=== PATIENT | female | born 1970 | race Caucasian/White ===

== ENCOUNTER 2017-12-03 15:19 | Emergency (ER) | payer OTHER ==
[~2017-12-03] VITALS: Ht 154.9 cm; Wt 54.4 kg
[~2017-12-03 15:19] MED LIST: ACEBUTCAFT PO; AMOX500; BELPTAB PO; CEPH500 PO; CHOL10002; CIPR500 PO; CYCL10 PO; FISH1000 PO; GUAI600T33 PO; HYDACE5 PO; HYDACE5325 PO; IBUP200; LOPE2C PO; MELO7.5 PO; METO25ER PO; NAPR500 PO; OMEP20ER PO; OMEP40CA12 PO; OXYACE5T PO; OXYC5; OXYC5 PO; PROM25 PO; Prilosec Otc20 MG PO; RANI150; RXCYCL10 PO; RXHYDACE PO; RXTRAM50 PO; SULTRIDS PO; TRAM50 PO; TRAZ100; VENL75
[2017-12-03 15:53] LABS: Source, Urine Clean Catch
[2017-12-03 16:07] LABS: Appearance, Urine Clear (Clear); Bilirubin, Urine Neg (Neg); Blood, Urine 1+ (Neg); Color, Urine Yellow (P-Yellow); Glucose Qualitative, Urine Neg (Neg); Ketones, Urine 1+ (Neg); Leukocyte Esterase, Urine 1+ (Neg); Nitrite, Urine Neg (Neg); Protein, Urine Neg (Neg); Urobilinogen, Urine 1+ (Normal)
[2017-12-03 16:10] LABS: BASOPHILS ABSOLUTE AUTO 0.08 K/mm3 (0.00-0.23); BASOPHILS PERCENT AUTO 1 % (0-2); EOSINOPHILS ABSOLUTE AUTO 0.07 K/mm3 (0.00-0.68); EOSINOPHILS PERCENT AUTO 1 % (0-6); Hematocrit 43.4 % (33.0-51.0); Hemoglobin 14.4 g/dL (11.5-16.0); IMMATURE GRAN ABSOLUTE AUTO 0.05 K/mm3 (0.00-0.10); IMMATURE GRAN PERCENT AUTO 1 % (0-1); LYMPHOCYTES ABSOLUTE AUTO 3.67 K/mm3 (0.84-5.20); LYMPHOCYTES PERCENT AUTO 37 % (21-46); MONOCYTES ABSOLUTE AUTO 0.53 K/mm3 (0.16-1.47); MONOCYTES PERCENT AUTO 5 % (4-13); Mean Corpuscular HGB 31.4 pg (26.0-34.0); Mean Corpuscular HGB Conc 33.2 g/dL (31.5-36.5); Mean Corpuscular Volume 95 fL (80-100); Mean Platelet Volume 10.5 fL (9.1-12.4); NEUTROPHILS ABSOLUTE AUTO 5.55 K/mm3 (1.96-9.15); NEUTROPHILS PERCENT AUTO 56 % (41-73); Platelet Count 310 K/mm3 (150-400); RDW Standard Deviation 45.1 fL (35.1-46.3); Red Blood Cell Count 4.58 M/mm3 (3.80-5.20); White Blood Cell Count 9.95 K/mm3 (4.00-11.30)
[2017-12-03 16:30] LABS: Alanine Aminotransfer (ALT/SGP 24 U/L (12-78); Albumin, Blood 3.5 g/dL (3.4-5.0); Albumin/Globulin Ratio 0.9 (0.8-1.8); Alk Phos 73 U/L (50-136); Anion Gap 7 mmol/L (6-16); Aspartate Aminotrans (AST/SGOT 27 U/L (12-37); Bilirubin, Total 0.1 mg/dL (0.1-1.0); Blood Urea Nitrogen 8 mg/dL (8-24); Bun/Creatinine Ratio 13.8 (12.0-20.0); CO2, Blood 27 mmol/L (21-32); Calcium, Blood 8.4 mg/dL (8.5-10.1); Chloride, Blood 105 mmol/L (98-108); Creatinine, Blood 0.58 mg/dL (0.40-1.00); Glomerular Filtration Rate >60 (60-); Glucose, Blood 94 mg/dL (70-99); Potassium, Blood 3.4 mmol/L (3.5-5.5); Sodium, Blood 139 mmol/L (136-145); Total Protein, Blood 7.5 g/dL (6.4-8.2); Troponin I <0.015 ng/mL (0.000-0.040)
[2017-12-03 16:35] LABS: Bacteria Few /hpf; Squamous Epithelial Cells Mod /hpf (Few)
[2017-12-03] MEDS ORDERED: KETO10 PO (16:58)
[2018-08-28] MEDS ORDERED: OMEPRAZOLE MAGN20 MG PO (10:02)
[2018-08-28] MEDS ORDERED: Metoprolol Succ25 MG PO (10:03)
[2018-08-28] MEDS ORDERED: ABAT250V (10:03)
[2018-08-28] MEDS ORDERED: OXYC5 PO (10:04)
[2018-08-28] MEDS ORDERED: PROZAC20 MG PO (10:05)
[2018-08-28] MEDS ORDERED: VIBERZI100 MG PO (10:05)
[2018-08-28] MEDS ORDERED: PROBIOTIC-10 11 EACH PO (10:05)
[2018-09-06] MEDS ORDERED: MEDR10 PO (14:27)
== END 2017-12-03 17:50 | disposition home or self-care (01) ==
LOC: ER 15:19
PROVIDERS: Emergency Medicine; Physician Assistant
DX: M94.0 Chondrocostal junction syndrome [Tietze] (principal); F17.210 Nicotine dependence, cigarettes, uncomplicated; Z88.5 Allergy status to narcotic agent; Z79.899 Other long term (current) drug therapy; Z86.19 Personal history of other infectious and parasitic diseases
CPT/HCPCS: 36415; 71046; 80053; 81001; 83880; 84484; 85025; 87086; 93005; 93010; 96374; 99283; J1885

== ENCOUNTER → 2018-07-02 | Outpatient (CLI) | payer OTHER ==
[~2018-07-02] MED LIST changes: +KETO10 PO
[2018-07-02 15:32] LABS: Adenovirus F 40/41 Not Detected (NOT DETECT); Astrovirus Not Detected (NOT DETECT); Campylobacter Sp Not Detected (NOT DETECT); Cryptosporidium Not Detected (NOT DETECT); Cyclospora Cayetanensis Not Detected (NOT DETECT); E. Coli O157 Not Detected (NOT DETECT); Entamoeba Histolytica Not Detected (NOT DETECT); Enteropathogenic E. coli-EPEC Not Detected (NOT DETECT); Enterotoxigenic E. coli-ETEC Not Detected (NOT DETECT); Giardia Lamblia Not Detected (NOT DETECT); Norovirus GI/GII Not Detected (NOT DETECT); Plesiomonas Shigelloides Not Detected (NOT DETECT); Rotavirus A Not Detected (NOT DETECT); Salmonella Sp Not Detected (NOT DETECT); Sapovirus Not Detected (NOT DETECT); Shiga Toxin-prod E. coli-STEC Not Detected (NOT DETECT); Shigella/Enteroin E. coli-EIEC Not Detected (NOT DETECT); Vibrio Cholerae Not Detected (NOT DETECT); Vibrio Sp Not Detected (NOT DETECT); Yersinia Enterocolitica Not Detected (NOT DETECT)
[2018-07-02 22:06] LABS: Enteroaggregative E. coli-EAEC Detected (NOT DETECT)
== END | disposition home or self-care (01) ==
LOC: LAB EV 10:12 → LAB SHORT 10:12
PROVIDERS: Internal Medicine
DX: K52.9 Noninfective gastroenteritis and colitis, unspecified (principal)
CPT/HCPCS: 87507

== ENCOUNTER 2018-11-13 07:07 | Day surgery (SDC) | payer OTHER ==
[~2018-11-13] VITALS: Ht 154.9 cm; Wt 130.0 kg
[~2018-11-13 07:07] MED LIST changes: +ABAT250V; +MEDR10 PO; +Metoprolol Succ25 MG PO; +OMEPRAZOLE MAGN20 MG PO; +PROBIOTIC-10 11 EACH PO; +PROZAC20 MG PO; +VIBERZI100 MG PO
--- NOTE | 2018-11-13 08:10 | NUR ---
Ambulatory in Day Surgery History, Chart, Medications and Allergies reviewed before start of procedure. Lungs clear T/O to Auscultation. Patient confirms NPO status and agrees with scheduled surgery. Pre-Op teaching done. Pt verbalizes understanding.
--- NOTE | 2018-11-13 12:18 | NUR ---
PT ARRIVED TO UNIT AT APROX 1130 VIA BED FROM PACU POD 0 LAP VAG HYSTER. STERI STRIPS X'S 3, UMBILICUS WITH MOD AMT DRAINAGE-GAUZE PLACED, OTHERS C/D/I. PT DENIES PAIN. THAKKAR PATENT, DRAINING NURIS CLEAR URINE. DENIES N/V, TOLERATING SMALL AMOUNTS OF PO AT THIS TIME. POST-OP VSS.
--- NOTE | 2018-11-13 18:06 | NUR ---
SHIFT SUMMARY PT POD 0 LAVH. STERI STRIPS X'S 3 INTACT. THAKKAR PATENT, DRAINING CLEAR NURIS URINE. PAIN MANAGED WITH 2 PERCOCET Q4, MEDICATED TWICE THIS SHIFT. SIMETHICONE GIVEN FOR GAS PAIN. PUT UP IN ROOM AMBULATING SMALL DISTANCES. OUT TO SMOKE X'S 2 IN WHEELCHAIR. TOLERATING PO WITH NO N/V. PLAN IS TO DC HOME TOMORROW IF NO COMPLICATIONS.
--- NOTE | 2018-11-14 04:53 | NUR ---
SUMMARY: PT IS POD1 LAVH. DID WELL TONIGHT, VSS, A/O. MEDICATED WITH 2 OXYCODONE Q4-Q6. SURGICAL SITES WNL, TOLERATING REG DIET. PT REPORTS PASSING GAS, BIJAN TO DC THIS AM. PT UP IN ROOM INDEPENDENTLY. NO SAFETY CONCERNS AT THIS TIME.
[2018-11-14 05:43] LABS: BASOPHILS ABSOLUTE AUTO 0.04 K/mm3 (0.00-0.23); BASOPHILS PERCENT AUTO 0 % (0-2); EOSINOPHILS ABSOLUTE AUTO 0.02 K/mm3 (0.00-0.68); EOSINOPHILS PERCENT AUTO 0 % (0-6); Hematocrit 35.7 % (33.0-51.0); Hemoglobin 11.8 g/dL (11.5-16.0); IMMATURE GRAN PERCENT AUTO 1 % (0-1); LYMPHOCYTES PERCENT AUTO 18 % (21-46); MONOCYTES ABSOLUTE AUTO 0.87 K/mm3 (0.16-1.47); MONOCYTES PERCENT AUTO 5 % (4-13); Mean Corpuscular HGB 32.3 pg (26.0-34.0); Mean Corpuscular HGB Conc 33.1 g/dL (31.5-36.5); Mean Corpuscular Volume 98 fL (80-100); Mean Platelet Volume 10.4 fL (9.1-12.4); NEUTROPHILS ABSOLUTE AUTO 12.74 K/mm3 (1.96-9.15); NEUTROPHILS PERCENT AUTO 76 % (41-73); Platelet Count 255 K/mm3 (150-400); RDW Coefficient Variation 13.8 % (11.7-14.2); RDW Standard Deviation 50.5 fL (35.1-46.3); Red Blood Cell Count 3.65 M/mm3 (3.80-5.20); White Blood Cell Count 16.87 K/mm3 (4.00-11.30)
--- NOTE | 2018-11-14 07:08 | NUR ---
11/14/18 0708 Amanda Giordano VERIFICATIONS: EDIT CHART.
[2018-11-14] MEDS ORDERED: IBUP800 PO (08:21)
[2018-11-14] MEDS ORDERED: Percocet 10-321 EACH PO (08:21)
[2018-11-14] MEDS ORDERED: Milk Of Ma400 MG/5 M PO (08:22)
--- NOTE | 2018-11-14 16:05 | NUR ---
DISCHARGE PT DISCHARGED HOME FROM UNIT AT APROX 1630. PT GIVEN WRITTEN AND VERBAL DISCHARGE INSTRUCTIONS AND VERBALIZED UNDERSTANDING OF THESE INSTRUCTION. PT GIVEN GREGN RX, COPY IN CHART.
== END 2018-11-14 15:40 | disposition home or self-care (01) ==
LOC: ORSCMMR 07:07 → ORD 09:20 → ORSCMMR 09:45 → ORD 10:15 → SURS 11:38 → ORSCMMR 11-14 15:40
PROVIDERS: Obstetrics & Gynecology
DX: N92.0 Excessive and frequent menstruation with regular cycle (principal); I10 Essential (primary) hypertension; F17.210 Nicotine dependence, cigarettes, uncomplicated; Z79.899 Other long term (current) drug therapy
CPT/HCPCS: 36415; 85025; 86850; 86900; 86901; 88307; J0690; J1100; J1885; J2250; J2370; J2405; J2710; J3010; J7120; Q0163

== ENCOUNTER 2019-07-18 19:32 | Emergency (ER) | payer OTHER ==
[~2019-07-18] VITALS: Ht 152.4 cm; Wt 56.7 kg
[~2019-07-18 19:32] MED LIST changes: +IBUP800 PO; +Milk Of Ma400 MG/5 M PO; +Percocet 10-321 EACH PO
[2019-07-18 20:17] LABS: BASOPHILS ABSOLUTE AUTO 0.09 K/mm3 (0.00-0.23); BASOPHILS PERCENT AUTO 1 % (0-2); EOSINOPHILS ABSOLUTE AUTO 0.13 K/mm3 (0.00-0.68); EOSINOPHILS PERCENT AUTO 1 % (0-6); Hematocrit 42.1 % (33.0-51.0); Hemoglobin 13.6 g/dL (11.5-16.0); IMMATURE GRAN ABSOLUTE AUTO 0.07 K/mm3 (0.00-0.10); IMMATURE GRAN PERCENT AUTO 1 % (0-1); LYMPHOCYTES ABSOLUTE AUTO 4.36 K/mm3 (0.84-5.20); LYMPHOCYTES PERCENT AUTO 44 % (21-46); MONOCYTES ABSOLUTE AUTO 0.58 K/mm3 (0.16-1.47); MONOCYTES PERCENT AUTO 6 % (4-13); Mean Corpuscular HGB 32.1 pg (26.0-34.0); Mean Corpuscular HGB Conc 32.3 g/dL (31.5-36.5); Mean Corpuscular Volume 99 fL (80-100); Mean Platelet Volume 10.7 fL (9.1-12.4); NEUTROPHILS ABSOLUTE AUTO 4.62 K/mm3 (1.96-9.15); NEUTROPHILS PERCENT AUTO 47 % (41-73); Platelet Count 371 K/mm3 (150-400); RDW Coefficient Variation 14.3 % (11.7-14.2); RDW Standard Deviation 51.8 fL (35.1-46.3); Red Blood Cell Count 4.24 M/mm3 (3.80-5.20); White Blood Cell Count 9.85 K/mm3 (4.00-11.30)
[2019-07-18 20:37] LABS: Alanine Aminotransfer (ALT/SGP 20 U/L (12-78); Albumin, Blood 3.3 g/dL (3.4-5.0); Albumin/Globulin Ratio 0.9 (0.8-1.8); Alk Phos 68 U/L (50-136); Anion Gap 3 mmol/L (6-16); Aspartate Aminotrans (AST/SGOT 20 U/L (12-37); Bilirubin, Total 0.7 mg/dL (0.1-1.0); Blood Urea Nitrogen 11 mg/dL (8-24); CO2, Blood 27 mmol/L (21-32); Calcium, Blood 9.2 mg/dL (8.5-10.1); Chloride, Blood 109 mmol/L (98-108); Creatinine, Blood 0.53 mg/dL (0.40-1.00); Globulin, Blood 3.7 g/dL (2.2-4.0); Glomerular Filtration Rate >60 (60-); Glucose, Blood 94 mg/dL (70-99); Potassium, Blood 3.5 mmol/L (3.5-5.5); Sodium, Blood 139 mmol/L (136-145)
[2019-07-18] MEDS ORDERED: VOLTAREN100 GM TOP (21:27)
== END 2019-07-18 21:34 | disposition home or self-care (01) ==
LOC: ER 19:32
PROVIDERS: Physician Assistant
DX: H92.01 Otalgia, right ear (principal); Z88.5 Allergy status to narcotic agent; Z79.899 Other long term (current) drug therapy; K21.9 Gastro-esophageal reflux disease without esophagitis; F32.9 Major depressive disorder, single episode, unspecified; E78.5 Hyperlipidemia, unspecified; Z87.891 Personal history of nicotine dependence
CPT/HCPCS: 36415; 70491; 80053; 85025; 96361; 96374-59; 96375-59; 99284-25; J1100; J1885; J7120; Q9967

== ENCOUNTER 2019-08-11 17:40 | Emergency (ER) | payer OTHER ==
[~2019-08-11] VITALS: Ht 152.4 cm; Wt 59.4 kg
[~2019-08-11 17:40] MED LIST changes: +VOLTAREN100 GM TOP
[2019-08-11] MEDS ORDERED: BUSP5 PO (18:15)
[2019-08-12] MEDS ORDERED: BUSP5 PO (19:48)
[2019-08-12] MEDS ORDERED: CEPH500 PO (21:21)
[2019-08-12] MEDS ORDERED: Bactrim Ds Tab1 EACH PO (21:21)
== END 2019-08-11 19:21 | disposition home or self-care (01) ==
LOC: ER 17:40
DX: L72.9 Follicular cyst of the skin and subcutaneous tissue, unspecified (principal); K21.9 Gastro-esophageal reflux disease without esophagitis; F32.9 Major depressive disorder, single episode, unspecified; Z87.891 Personal history of nicotine dependence; Z88.5 Allergy status to narcotic agent; Z79.899 Other long term (current) drug therapy
CPT/HCPCS: 10061; 99283-25

== ENCOUNTER 2019-09-29 20:29 | Emergency (ER) | payer OTHER ==
[~2019-09-29] VITALS: Ht 152.4 cm; Wt 56.2 kg
[~2019-09-29 20:29] MED LIST changes: +BUSP5 PO; +Bactrim Ds Tab1 EACH PO
[2019-09-29] MEDS ORDERED: Keflex500 MG PO (23:04)
[2019-09-29] MEDS ORDERED: Bactrim Ds Tab1 EACH PO (23:04)
== END 2019-09-29 23:13 | disposition home or self-care (01) ==
LOC: ER 20:29
DX: L02.212 Cutaneous abscess of back [any part, except buttock and flank] (principal); K21.9 Gastro-esophageal reflux disease without esophagitis; F32.9 Major depressive disorder, single episode, unspecified; F17.210 Nicotine dependence, cigarettes, uncomplicated; Z86.19 Personal history of other infectious and parasitic diseases; E78.5 Hyperlipidemia, unspecified; Z88.5 Allergy status to narcotic agent; Z79.899 Other long term (current) drug therapy
CPT/HCPCS: 10060; 99283-25; A9270-GY

== ENCOUNTER 2021-02-26 11:07 | Emergency (ER) | payer OTHER ==
[~2021-02-26] VITALS: Ht 154.9 cm; Wt 63.5 kg
[~2021-02-26 11:07] MED LIST changes: +Keflex500 MG PO
== END 2021-02-26 11:56 | disposition home or self-care (01) ==
LOC: ER 11:07
DX: M25.571 Pain in right ankle and joints of right foot (principal); K21.9 Gastro-esophageal reflux disease without esophagitis; I10 Essential (primary) hypertension; F17.210 Nicotine dependence, cigarettes, uncomplicated; Z88.5 Allergy status to narcotic agent; Z79.899 Other long term (current) drug therapy
CPT/HCPCS: 99283

== ENCOUNTER 2021-04-28 15:39 | Emergency (ER) | payer OTHER ==
[~2021-04-28] VITALS: Ht 152.4 cm; Wt 64.4 kg
[2021-04-28 16:23] LABS: Hematocrit 44.3 % (33.0-51.0); Hemoglobin 14.4 g/dL (11.5-16.0); Mean Corpuscular HGB 30.5 pg (26.0-34.0); Mean Corpuscular HGB Conc 32.5 g/dL (31.5-36.5); Mean Corpuscular Volume 94 fL (80-100); Mean Platelet Volume 10.2 fL (9.1-12.4); Platelet Count 363 K/mm3 (150-400); RDW Coefficient Variation 14.4 % (11.7-14.2); Red Blood Cell Count 4.72 M/mm3 (3.80-5.20); White Blood Cell Count 8.32 K/mm3 (4.00-11.30)
[2021-04-28 16:43] LABS: Alanine Aminotransfer (ALT/SGP 22 U/L (12-78); Albumin, Blood 3.4 g/dL (3.4-5.0); Albumin/Globulin Ratio 0.9 (0.8-1.8); Alk Phos 119 U/L (50-136); Anion Gap 4 mmol/L (6-16); Aspartate Aminotrans (AST/SGOT 19 U/L (12-37); Bilirubin, Total 0.2 mg/dL (0.1-1.0); Blood Urea Nitrogen 5 mg/dL (8-24); Bun/Creatinine Ratio 8.4 (12.0-20.0); CO2, Blood 25 mmol/L (21-32); Calcium, Blood 8.9 mg/dL (8.5-10.1); Chloride, Blood 108 mmol/L (98-108); Creatinine, Blood 0.59 mg/dL (0.40-1.00); Globulin, Blood 3.9 g/dL (2.2-4.0); Glomerular Filtration Rate >60 (60-); Glucose, Blood 94 mg/dL (70-99); Potassium, Blood 3.9 mmol/L (3.5-5.5); Sodium, Blood 137 mmol/L (136-145); Total Protein, Blood 7.3 g/dL (6.4-8.2); Troponin I <0.015 ng/mL (0.000-0.040)
[2021-04-28 17:34] LABS: BASOPHILS PERCENT MAN 0 % (0-2); EOSINOPHILS ABSOLUTE MAN 0.16 K/mm3 (0.00-0.68); EOSINOPHILS PERCENT MAN 2 % (0-6); LYMPHOCYTES ABSOLUTE MAN 5.15 K/mm3 (0.84-5.20); LYMPHOCYTES PERCENT MAN 62 % (21-46); MONOCYTES ABSOLUTE MAN 0.33 K/mm3 (0.16-1.47); MONOCYTES PERCENT MAN 4 % (4-13); NEUTROPHILS ABSOLUTE MAN 2.66 K/mm3 (1.96-9.15); SEG NEUTROPHILS PERCENT MAN 32 % (41-73); TOTAL CELLS COUNTED 100
[2021-04-28] MEDS ORDERED: METO25ER PO (19:40)
[2021-04-28] MEDS ORDERED: Amitriptyline H10 MG PO (19:40)
[2021-04-28] MEDS ORDERED: LOSA25 PO (19:40)
[2021-04-28] MEDS ORDERED: THERA-D2000 UNIT PO (19:41)
== END 2021-04-28 23:00 | disposition home or self-care (01) ==
LOC: ER 15:39
PROVIDERS: Physician Assistant
DX: R07.89 Other chest pain (principal); K21.9 Gastro-esophageal reflux disease without esophagitis; E78.5 Hyperlipidemia, unspecified; I10 Essential (primary) hypertension; Z88.5 Allergy status to narcotic agent; Z87.891 Personal history of nicotine dependence; Z79.899 Other long term (current) drug therapy
CPT/HCPCS: 36415; 71046; 71260; 80053; 84484; 85025; 85379; 93005; 93010; 99284-25; Q9967

== ENCOUNTER 2021-11-17 05:58 | Day surgery (SDC) | payer OTHER ==
[~2021-11-17] VITALS: Ht 152.4 cm; Wt 70.8 kg
[~2021-11-17 05:58] MED LIST changes: +Amitriptyline H10 MG PO; +GABA300T24 PO; +LOSA25 PO; +ONDA4 PO; +ROSUVASTATIN CAL5 MG PO; +THERA-D2000 UNIT PO
[2021-11-17] MEDS ORDERED: BENZ100A PO (06:25)
[2021-11-17] MEDS ORDERED: FLUT1DIS2 INH (06:32)
--- NOTE | 2021-11-17 06:58 | NUR ---
History, Chart, Medications and Allergies reviewed before start of procedure. Patient confirms NPO status and agrees with scheduled surgery. Lungs clear T/O to Auscultation. Patient States Post-Procedure ride home has been arranged with her significant other.
--- NOTE | 2021-11-17 10:23 | NUR ---
REPORT TO SOTO ACKERMAN
--- NOTE | 2021-11-17 10:59 | NUR ---
Patient up to Ambulate independently. Gait steady. Discharge instructions reviewed with patient. Patient verbalizes understanding. Copy given to patient to take home. Dressing ON FORHEAD, CHIN, AND FIVE ON NECK to procedure site clean, dry, intact with no visible drainage, swelling, erythema or bruising noted. Patient States Post-Procedure ride home has been arranged. Discharged via wheelchair to private car for ride home. ALL BELONGINGS RETURNED TO PATIENT.
== END 2021-11-17 22:40 | disposition home or self-care (01) ==
LOC: ORSCMMR 05:58 → ORD 07:30 → ORSCMMR 07:30
PROVIDERS: Surgery
PROC: 0HB1XZX Excision of Face Skin, External Approach, Diagnostic (ICD-10-PCS; principal; 2021-11-17 07:30)
PROC: 0HB4XZX Excision of Neck Skin, External Approach, Diagnostic (ICD-10-PCS; principal; 2021-11-17 07:30)
DX: L72.9 Follicular cyst of the skin and subcutaneous tissue, unspecified (principal); L72.0 Epidermal cyst; I10 Essential (primary) hypertension; J44.9 Chronic obstructive pulmonary disease, unspecified; F17.210 Nicotine dependence, cigarettes, uncomplicated; K21.9 Gastro-esophageal reflux disease without esophagitis; Z79.899 Other long term (current) drug therapy
CPT/HCPCS: 88304; A9270; J0690; J2250; J2370; J2704; J3010; J7120

== ENCOUNTER 2022-05-10 13:09 | Day surgery (SDC) | payer OTHER ==
[~2022-05-10] VITALS: Ht 152.4 cm; Wt 67.7 kg
[~2022-05-10 13:09] MED LIST changes: +BENZ100A PO; +FLUT1DIS2 INH
== END 2022-05-10 15:16 | disposition home or self-care (01) ==
LOC: ORSCSDS 13:09
PROVIDERS: Student in an Organized Health Care Education/Training Program
PROC: 0DB58ZX Excision of Esophagus, Via Natural or Artificial Opening Endoscopic, Diagnostic (ICD-10-PCS; principal; 2022-05-10 14:30)
DX: R13.10 Dysphagia, unspecified (principal); B37.81 Candidal esophagitis; K21.9 Gastro-esophageal reflux disease without esophagitis; I10 Essential (primary) hypertension; F41.9 Anxiety disorder, unspecified; J44.9 Chronic obstructive pulmonary disease, unspecified; Z86.19 Personal history of other infectious and parasitic diseases; F17.210 Nicotine dependence, cigarettes, uncomplicated; Z79.899 Other long term (current) drug therapy
CPT/HCPCS: 88305; 88312; A9270; J2704; J7120

== ENCOUNTER → 2022-09-10 | Outpatient (CLI) | payer OTHER | END | disposition home or self-care (01) | LOC: LAB 13:48 → LAB SHORT 13:48 | DX: R19.7 Diarrhea, unspecified (principal) | CPT/HCPCS: 87338 ==

== ENCOUNTER 2024-03-17 21:25 | Inpatient (IN) | payer OTHER ==
[~2024-03-17] VITALS: Ht 152.4 cm; Wt 59.1 kg
[~2024-03-17 21:25] MED LIST changes: +MIRT15ST PO; +VITAMIN D310 MC5 PO
[2024-03-17 21:51] LABS: BASOPHILS PERCENT AUTO 1 % (0-2); EOSINOPHILS ABSOLUTE AUTO 0.04 K/mm3 (0.00-0.68); EOSINOPHILS PERCENT AUTO 0 % (0-6); Hematocrit 43.4 % (33.0-51.0); Hemoglobin 14.3 g/dL (11.5-16.0); IMMATURE GRAN ABSOLUTE AUTO 0.07 K/mm3 (0.00-0.10); IMMATURE GRAN PERCENT AUTO 1 % (0-1); LYMPHOCYTES ABSOLUTE AUTO 0.77 K/mm3 (0.84-5.20); LYMPHOCYTES PERCENT AUTO 7 % (21-46); MONOCYTES ABSOLUTE AUTO 1.23 K/mm3 (0.16-1.47); MONOCYTES PERCENT AUTO 11 % (4-13); Mean Corpuscular HGB 30.8 pg (26.0-34.0); Mean Corpuscular HGB Conc 32.9 g/dL (31.5-36.5); Mean Corpuscular Volume 93 fL (80-100); NEUTROPHILS ABSOLUTE AUTO 8.95 K/mm3 (1.96-9.15); NEUTROPHILS PERCENT AUTO 80 % (41-73); Platelet Count 346 K/mm3 (150-400); RDW Coefficient Variation 15.2 % (11.7-14.2); RDW Standard Deviation 52.4 fL (35.1-46.3); Red Blood Cell Count 4.65 M/mm3 (3.80-5.20); White Blood Cell Count 11.16 K/mm3 (4.00-11.30)
[2024-03-17 22:08] LABS: Albumin, Blood 3.7 g/dL (3.4-5.0); Albumin/Globulin Ratio 0.9 (0.8-1.8); Bilirubin, Total 0.3 mg/dL (0.1-1.0); Bun/Creatinine Ratio 7.4 (12.0-20.0); Calcium, Blood 9.4 mg/dL (8.5-10.1); Creatinine, Blood 0.68 mg/dL (0.40-1.00); Globulin, Blood 4.1 g/dL (2.2-4.0); Potassium, Blood 3.7 mmol/L (3.5-5.5); Total Protein, Blood 7.8 g/dL (6.4-8.2)
[2024-03-17 22:17] LABS: Influenza A, PCR NEGATIVE (NEGATIVE); Influenza B, PCR NEGATIVE (NEGATIVE); Resp Syncytial Virus, PCR NEGATIVE (NEGATIVE)
[2024-03-17] MEDS ORDERED: MethylPREDNISolone Sod Succ 125 MG Vial IV ONE (22:20)
[2024-03-17] MEDS ORDERED: Ketorolac Tromethamine 30mg Vial IV ONE (22:20)
[2024-03-17] MEDS ORDERED: Albuterol 2.5 MG/3 ML VIAL INH SCH (22:20)
[2024-03-17 22:46] LABS: SARS-Cov-2 (COVID-19) PCR, MMC POSITIVE (NEGATIVE)
[2024-03-17] MEDS ORDERED: AIRSUPRA 90-810.7 GM IH (23:28)
[2024-03-17] MEDS ORDERED: Acetaminophen 325 MG TABLET PO PRN (23:45)
[2024-03-17] MEDS ORDERED: Melatonin 3 MG Tab PO PRN (23:45)
[2024-03-17] MEDS ORDERED: Ondansetron 4 MG TAB PO PRN (23:45)
[2024-03-17] MEDS ORDERED: Guaifenesin/Dextromethorphan Syrup 5 ML UDC PO PRN (23:45)
[2024-03-18] MEDS ORDERED: Albuterol HFA200 ACT/6.7 GM INH INH PRN (00:05)
[2024-03-18] MEDS ORDERED: OxyCODONE 10/Acetamin 325 TABLET PO PRN (00:20)
[2024-03-18] MEDS ORDERED: Remdesivir (EUA) 200 MG in NS 250 ML IV ONE (00:25)
[2024-03-18] MEDS ORDERED: Mometasone/Formoterol MDI 100/5 mcg 13 GM INH SCH (00:30)
[2024-03-18] MEDS ORDERED: ALDACTONE100 MG PO (00:37)
[2024-03-18 00:43] VITALS: BP 154/98
[2024-03-18] MEDS ORDERED: Mirtazapine 15 MG SoluTab PO SCH (01:00)
[2024-03-18] MEDS ORDERED: NS 250 ML IV PRN ×2 (01:10→13:00)
[2024-03-18 03:03] VITALS: BP 154/85
[2024-03-18 04:16] LABS: BASOPHILS ABSOLUTE AUTO 0.06 K/mm3 (0.00-0.23); BASOPHILS PERCENT AUTO 1 % (0-2); EOSINOPHILS PERCENT AUTO 0 % (0-6); Hematocrit 44.2 % (33.0-51.0); Hemoglobin 14.5 g/dL (11.5-16.0); IMMATURE GRAN ABSOLUTE AUTO 0.06 K/mm3 (0.00-0.10); IMMATURE GRAN PERCENT AUTO 1 % (0-1); LYMPHOCYTES ABSOLUTE AUTO 0.36 K/mm3 (0.84-5.20); LYMPHOCYTES PERCENT AUTO 4 % (21-46); MONOCYTES ABSOLUTE AUTO 0.11 K/mm3 (0.16-1.47); MONOCYTES PERCENT AUTO 1 % (4-13); Mean Corpuscular HGB 30.7 pg (26.0-34.0); Mean Corpuscular HGB Conc 32.8 g/dL (31.5-36.5); Mean Corpuscular Volume 93 fL (80-100); Mean Platelet Volume 11.1 fL (9.1-12.4); NEUTROPHILS ABSOLUTE AUTO 7.59 K/mm3 (1.96-9.15); NEUTROPHILS PERCENT AUTO 93 % (41-73); Platelet Count 330 K/mm3 (150-400); RDW Coefficient Variation 15.2 % (11.7-14.2); RDW Standard Deviation 52.5 fL (35.1-46.3); Red Blood Cell Count 4.73 M/mm3 (3.80-5.20); White Blood Cell Count 8.18 K/mm3 (4.00-11.30)
[2024-03-18 04:39] LABS: Albumin, Blood 3.6 g/dL (3.4-5.0); Albumin/Globulin Ratio 0.9 (0.8-1.8); Bilirubin, Total 0.4 mg/dL (0.1-1.0); Bun/Creatinine Ratio 8.3 (12.0-20.0); Calcium, Blood 9.5 mg/dL (8.5-10.1); Creatinine, Blood 0.6 mg/dL (0.40-1.00); Potassium, Blood 3.5 mmol/L (3.5-5.5); Total Protein, Blood 7.6 g/dL (6.4-8.2)
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
[2024-03-18] MEDS ORDERED: Omeprazole 20 MG CapCR PO SCH (07:30)
[2024-03-18 08:28] VITALS: BP 150/86
[2024-03-18] MEDS ORDERED: Enoxaparin 40 MG/0.4 ML SYR SC SCH (09:00)
[2024-03-18] MEDS ORDERED: Lactobacil 2-S.Thermo-Bifido 1 1 Cap PO SCH (09:00)
[2024-03-18] MEDS ORDERED: PredniSONE 20 MG Tab PO SCH (09:00)
[2024-03-18] MEDS ORDERED: Dexamethasone Sod Phos 10 MG/ML 1ML VIAL IV SCH (09:00)
[2024-03-18] MEDS ORDERED: BusPIRone HCl 10 MG Tab PO SCH (09:00)
[2024-03-18] MEDS ORDERED: GuaiFENesin 600 MG TabCR PO SCH (09:00)
[2024-03-18] MEDS ORDERED: Metoprolol Succinate 25 MG TABCR PO SCH (09:00)
[2024-03-18] MEDS ORDERED: Losartan Potassium 25 MG Tab PO SCH (09:00)
--- NOTE | 2024-03-18 16:00 | NUR ---
SHIFT SUMMARY MS MC HAS C/O HEADACHE THAT SHE SAID STARTED AT 0230 YESTERDAY MORNING. ROOM DARKENED, GIVEN TYLENOL AND PERCOCET FOR HEADACHE WHICH BROUGHT IT DOWN TO 5/10. SHE IS WATCHING TV AND TALKING ON PHONE. GOOD APPETITE. UP INDEPENDENTLY TO THE BATHROOM. BED LOW, CALL LIGHT IN REACH.
[2024-03-18 16:19] VITALS: BP 143/86
[2024-03-18 19:41] VITALS: BP 157/95
[2024-03-18] MEDS ORDERED: Rosuvastatin Calcium 10 MG Tab PO SCH (21:00)
[2024-03-18] MEDS ORDERED: Remdesivir (EUA) 100 MG in NS 250 ML IV SCH (21:00)
[2024-03-19 04:01] VITALS: BP 163/91
--- NOTE | 2024-03-19 05:10 | NUR ---
UI SOFTWARE ENGINEER SUMMARY PT IS A/OX4. INDEPENDENT AND ABLE TO MAKE NEEDS KNOWN. PT HAS BEEN ON 2L O2 INTERMITTANTLY. PT SATURATIONS HAVE BEEN ABOVE 90 ON ROOM AIR WHEN CHECKED. PT STATES SHE IS FEELING IMPROVED FROM YESTERDAY. ATTEMPT TO GIVE 2100 DOSE OF REMDESIVIR. PT SATED THAT SHE WAS FEELING UNEASY ABOUT TAKING MEDICATION SHE IS FEELING BETTER. PT STATES SHE MAY HAVE FELT PRESSURED TO AGREE TO TAKE THE MEDICATION. PT DECLINED THE MEDICATION. CALL LIGHT IS ACCESSIBLE.
[2024-03-19 07:21] VITALS: BP 163/101
[2024-03-19 07:22] VITALS: BP 149/93
[2024-03-19] MEDS ORDERED: Nicotine 14 MG PATCH TOP SCH (09:00)
[2024-03-19] MEDS ORDERED: Nicoderm Cq1 EAC1 TOP (09:54)
[2024-03-19] MEDS ORDERED: Q-Tussin100 MG/5 M PO (09:54)
[2024-03-19] MEDS ORDERED: GUAI600T33 PO (09:54)
[2024-03-19] MEDS ORDERED: ALBU2.5V5 INH (09:55)
[2024-03-19] MEDS ORDERED: PRED20 PO (09:55)
[2024-03-19] MEDS ORDERED: IPRAT-ALBUT 0.5-3 ML INH (09:56)
[2024-03-19] MEDS ORDERED: Loperamide HCl 2 MG Cap PO ONE (10:00)
--- NOTE | 2024-03-19 12:24 | NUR ---
DISCHARGE SUMMARY: PT DISCHARGED HOME WITH HOME HEALTH SERVICES. PT EDUCATED ON DISCHARGE MEDICATIONS AND INSTRUCTIONS. PT VU. ASSISTED PT WITH GETTING BELONGINGS PACKED UP. PT DECLINED ASSISTANCE WITH DRESSING AND WAS ABLE TO DRESS SELF. PT ESCORTED TO POV VIA WC WITH . BELONGINGS SENT.
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
== END 2024-03-19 10:36 | disposition home or self-care (01) | DRG 177 ==
LOC: ER 21:25 → MEDS 23:55
PROVIDERS: Student in an Organized Health Care Education/Training Program; ADMIT Student in an Organized Health Care Education/Training Program
PROC: 3E0333Z Introduction of Anti-inflammatory into Peripheral Vein, Percutaneous Approach (ICD-10-PCS; principal; 2024-03-18)
DX: U07.1 COVID-19 (principal); J96.01 Acute respiratory failure with hypoxia; J44.1 Chronic obstructive pulmonary disease with (acute) exacerbation; J44.0 Chronic obstructive pulmonary disease with (acute) lower respiratory infection; K21.9 Gastro-esophageal reflux disease without esophagitis; F32.A Depression, unspecified; I10 Essential (primary) hypertension; F17.210 Nicotine dependence, cigarettes, uncomplicated; M41.9 Scoliosis, unspecified; Z53.9 Procedure and treatment not carried out, unspecified reason; E78.5 Hyperlipidemia, unspecified; Z86.19 Personal history of other infectious and parasitic diseases
CPT/HCPCS: 0241U; 36415; 71046; 80053; 83605; 85025; 93005; 93010; 94640; 94660; 94664; 94760; 94762; 96374; 96375; 99285-25; A9270; J0248; J1650; J1885; J2919; J7050; J7512

== ENCOUNTER → 2024-05-28 | Outpatient (CLI) | payer OTHER ==
[~2024-05-28] MED LIST changes: +AIRSUPRA 90-810.7 GM IH; +ALBU2.5V5 INH; +ALDACTONE100 MG PO; +IPRAT-ALBUT 0.5-3 ML INH; +Nicoderm Cq1 EAC1 TOP; +PRED20 PO; +Q-Tussin100 MG/5 M PO
[2024-05-28 16:14] LABS: BASOPHILS ABSOLUTE AUTO 0.06 K/mm3 (0.00-0.23); BASOPHILS PERCENT AUTO 1 % (0-2); EOSINOPHILS PERCENT AUTO 1 % (0-6); Hemoglobin 14.5 g/dL (11.5-16.0); IMMATURE GRAN ABSOLUTE AUTO 0.02 K/mm3 (0.00-0.10); IMMATURE GRAN PERCENT AUTO 0 % (0-1); LYMPHOCYTES ABSOLUTE AUTO 3.48 K/mm3 (0.84-5.20); LYMPHOCYTES PERCENT AUTO 42 % (21-46); MONOCYTES ABSOLUTE AUTO 0.42 K/mm3 (0.16-1.47); MONOCYTES PERCENT AUTO 5 % (4-13); Mean Corpuscular HGB Conc 33.7 g/dL (31.5-36.5); Mean Corpuscular Volume 92 fL (80-100); Mean Platelet Volume 10.5 fL (9.1-12.4); NEUTROPHILS ABSOLUTE AUTO 4.18 K/mm3 (1.96-9.15); NEUTROPHILS PERCENT AUTO 51 % (41-73); Platelet Count 357 K/mm3 (150-400); RDW Coefficient Variation 14.1 % (11.7-14.2); RDW Standard Deviation 47.5 fL (35.1-46.3); Red Blood Cell Count 4.68 M/mm3 (3.80-5.20); White Blood Cell Count 8.26 K/mm3 (4.00-11.30)
== END | disposition home or self-care (01) ==
LOC: LAB 16:08 → LAB SHORT 16:08
PROVIDERS: Family Medicine
DX: R07.89 Other chest pain (principal)
CPT/HCPCS: 84484; 85025; 85379

== ENCOUNTER 2024-08-24 09:40 | Day surgery (SDC) | payer OTHER ==
[~2024-08-24] VITALS: Ht 152.4 cm; Wt 50.7 kg
[~2024-08-24 09:40] MED LIST changes: +Lactated Ringer's 1,000 ML IV ONE; +propofoL 50 ML IV ONE
[2024-08-24] MEDS ORDERED: Cymbalta20 MG (10:47)
[2024-08-24] MEDS ORDERED: ERGO400 (10:47)
[2024-08-24] MEDS ORDERED: BALANCED B-5050 MCG (10:48)
[2024-08-24] MEDS ORDERED: Lactated Ringer's 1,000 ML IV ONE ×2 (11:25)
[2024-08-24 12:42] VITALS: BP 128/88
== END 2024-08-24 12:20 | disposition home or self-care (01) ==
LOC: ORSCSDS 09:40
PROVIDERS: Internal Medicine Gastroenterology
PROC: 0DJ08ZZ Inspection of Upper Intestinal Tract, Via Natural or Artificial Opening Endoscopic (ICD-10-PCS; principal; 2024-08-24 11:00)
DX: K21.9 Gastro-esophageal reflux disease without esophagitis (principal); R63.4 Abnormal weight loss; R10.13 Epigastric pain; I10 Essential (primary) hypertension; Z86.19 Personal history of other infectious and parasitic diseases; F17.210 Nicotine dependence, cigarettes, uncomplicated; Z79.899 Other long term (current) drug therapy
CPT/HCPCS: J2704; J7120